=== PATIENT | male | born 1980 | race Two or more races ===

== ENCOUNTER 2017-04-19 10:21 | Emergency (ER) | payer SELFPAY ==
[2017-04-19 10:28] VITALS: BP 128/74; BMI 21.9
--- NOTE | 2017-04-19 11:00 | DR.GENAD ---
HPI - PCP Primary Care Physician: NFD - Complaint/Symptoms Chief Complaint Doctors Comments: Patient reports that he has these reoccuring lesions on the buttock. The present one has been there for three days. It is tender. Chief Complaint:: ABSCESS TO BUTTOCKS - Source History Provided: Patient - Mode of Arrival Mode of Arrival: Ambulatory - Timing Onset of Chief Complaint: 04/19/17 PMH - PMH Past Medical History: No Past Surgical History: No - Family History History of Family Medical Conditions: No - Social History Does patient currently use any type of tobacco product: Yes Have you used tobacco products in the last 12 months: Yes Type of Tobacco Use: VAPOR Does any household member use tobacco: No Alcohol Use: None Do you use any recreational Drugs:: No Lives With: Family Lives Where: Home - infectious screening In the last 2 months have you had wt loss of >10#?: NO Have you had fever, night sweats or hemotysis?: No Have you traveled outside the country in the last 6 months?: No Isolation: Standard ROS - Review of Systems Constitutional: No Symptoms Reported Eyes: No Symptoms Reported ENTM: No Symptoms Reported Respiratoy: No Symptoms Reported Cardiovascular: No Symptoms Reported Gastrointestinal/Abdominal: No Symptoms Reported Genitourinary: No Symptoms Reported Neurological: No Symptoms Reported Musculoskeletal: No Symptoms Reported Integumentary: Lesions (There is a tender non erythematous non fluctuant nodule mid saccrum.) Hematologic/Lymphatic: No Symptoms Reported Endocrine: No Symptoms Reported Psychiatric: No Symptoms Reported All Other Systems: Reviewed and Negative PE - Vital Signs Vitals: Temperature 98.5 F Pulse Rate 58 Respiratory Rate 20 Blood Pressure 128/74 O2 Sat by Pulse Oximetry 98 - General Limitations: No Limitations General Appearance: Alert, In No Apparent Distress - Head Head Exam: Normal Inspection, Atraumatic - Discharge Plan Condition: Stable - Follow ups/Referrals Follow ups/Referrals: NFD,None [Primary Care Provider] - 3 days - Instructions
[2017-04-19] MEDS ORDERED: ROCEPHIN VIAL 1 GM IM ONE (11:02)
[2017-04-19] MEDS ORDERED: XYLOCAINE 1 % (PLAIN) ONE (11:03)
[2017-04-19] MEDS ORDERED: ROCEPHIN VIAL 1 GM ONE (11:04)
== END 2017-04-19 11:12 | disposition home or self-care (01) ==
LOC: ER 10:32
DX: L02.31 Cutaneous abscess of buttock (principal); L02.93 Carbuncle, unspecified
CPT/HCPCS: 96372; 99281; 99282; J0696; J2001